=== PATIENT | male | born 1960 | race Caucasian/White ===

== ENCOUNTER 2017-02-21 16:19 | Outpatient (CLI) | payer OTHER ==
--- NOTE | 2017-02-21 18:04 | RAD ---
[facility] ANKLE THREE VIEWS: History: Pain in the right ankle. FINDINGS/IMPRESSION: The ankle mortise is maintained. No fracture, dislocation, or bony destruction is identified. There i s a plantar calcaneal spur. POS: JEFF
== END 2017-02-21 16:20 | disposition home or self-care (01) ==
LOC: MADRAD 16:19
PROVIDERS: ATTEND Obstetrics & Gynecology
DX: M25.571 Pain in right ankle and joints of right foot (principal); M77.32 Calcaneal spur, left foot